=== PATIENT | female | born 1975 | race Caucasian/White ===

== ENCOUNTER 2016-11-06 10:00 | Day surgery (SDC) | payer OTHER ==
[~2016-11-06] VITALS: Ht 162.6 cm; Wt 113.4 kg
[~2016-11-06 10:00] MED LIST: ADVIL200 MG PO; AUBAGIO14 MG PO; BACLOFEN20 MG PO; BUPROPION XL300 MG PO; CYMBALTA60 MG PO; DESYREL100 MG PO; HYDROCHLOROTHIA25 MG PO; QSYMIA 3.75 MG1 EACH PO; TOPAMAX50 MG PO
[2016-11-06 10:25] VITALS: BP 147/95
[2016-11-06 16:40] VITALS: BP 136/85
[2016-11-06 17:40] VITALS: BP 129/75
[2016-11-06 18:30] VITALS: BP 132/90
== END 2016-11-06 18:45 | disposition home or self-care (01) ==
LOC: SDC 10:00
DX: M51.06 Intervertebral disc disorders with myelopathy, lumbar region (principal); M51.36 Other intervertebral disc degeneration, lumbar region; M48.06 Spinal stenosis, lumbar region; I10 Essential (primary) hypertension; G35 Multiple sclerosis; E66.01 Morbid (severe) obesity due to excess calories; Z68.41 Body mass index [BMI] 40.0-44.9, adult; Z87.891 Personal history of nicotine dependence
CPT/HCPCS: 72020; 76000; J0131; J0330; J1100; J1170; J2250; J2405; J2710; J2930; J3370; S0020